=== PATIENT | male | born 1970 | race Caucasian/White ===

== ENCOUNTER 2018-05-08 10:38 | Emergency (ER) | payer MEDICAID ==
[2018-05-08 11:10] LABS: BASO % 0.5 % (0.0-1.0); EOS # 0.3 10^3/uL (0.0-0.50); EOS % 3.2 % (0.0-3.0); HEMATOCRIT 42.9 % (42.0-52.0); HEMOGLOBIN 14.8 g/dl (13.5-17.5); IMMATURE GRANULOCYTE % 0.1 % (0-3.0); LYMPH # 2.8 10^3/uL (1.5-4.5); LYMPH % 33.3 % (24.0-44.0); MEAN CORPUSCULAR HEMOGLOBIN 30.1 pg (27.0-33.0); MEAN CORPUSCULAR HGB CONC 34.5 g/dl (32.0-36.5); MEAN CORPUSCULAR VOLUME 87.4 fl (80.0-96.0); MONO # 0.7 10^3/uL (0.0-0.8); MONO % 7.8 % (0.0-5.0); NEUTROPHILS # 4.6 10^3/uL (1.8-7.7); NEUTROPHILS % 55.1 % (36.0-66.0); PLATELET COUNT, AUTOMATED 318 10^3/uL (150-450); RED BLOOD COUNT 4.91 10^6/uL (4.30-6.10); RED CELL DISTRIBUTION WIDTH 12.6 % (11.5-14.5); WHITE BLOOD COUNT 8.4 10^3/uL (4.0-10.0)
[2018-05-08 11:34] LABS: ANION GAP 6 MEQ/L (8-16); BLOOD UREA NITROGEN 19 MG/DL (7-18); CALCIUM LEVEL 8.8 MG/DL (8.5-10.1); CARBON DIOXIDE LEVEL 26 MEQ/L (21-32); CHLORIDE LEVEL 107 MEQ/L (98-107); CPK CREATINE PHOSPHOKINASE 179 U/L (39-308); CREATININE FOR GFR 0.94 MG/DL (0.70-1.30); GLOMERULAR FILTRATION RATE > 60.0 (>60); GLUCOSE, FASTING 103 MG/DL (70-100); MB/CK RELATIVE INDEX 1.28 (< OR =4); POTASSIUM SERUM 4.4 MEQ/L (3.5-5.1); SODIUM LEVEL 139 MEQ/L (136-145); TROPONIN I 0.03 NG/ML (< 0.10)
[2018-05-08] MEDS ORDERED: ISOVUE-370 76% 100ML VIAL (Q9967) As Ordered (12:58)
[2018-05-08] MEDS: ASPIRIN 81 MG CHEW TABLET PO (13:20)
[2018-05-08 14:13] LABS: CPK CREATINE PHOSPHOKINASE 157 U/L (39-308); MB/CK RELATIVE INDEX 1.46 (< OR =4); TROPONIN I 0.04 NG/ML (< 0.10)
[2018-05-08 17:00] LABS: CPK CREATINE PHOSPHOKINASE 147 U/L (39-308); MB/CK RELATIVE INDEX 1.36 (< OR =4); TROPONIN I 0.03 NG/ML (< 0.10)
[2018-05-08] MEDS: METOPROLOL TART 25 MG TABLET PO (17:05)
[2018-05-08] MEDS: CLOPIDOGREL 300 MG TAB (PLAVIX) PO (17:05)
[2018-05-08] MEDS: ATORVASTATIN 20 MG TAB PO (17:05)
== END 2018-05-08 17:43 | disposition home or self-care (01) ==
LOC: M ED 10:38
DX: I20.9 Angina pectoris, unspecified (principal); I10 Essential (primary) hypertension
CPT/HCPCS: Q9967

== ENCOUNTER → 2018-06-15 | Outpatient (CLI) | payer OTHER ==
[~2018-06-15] MED LIST: ASPI1TAB PO; ATOR40TA75 PO; METO1TAB32 PO; NITR0.4S14 SL; PLAV1TAB2 PO
--- NOTE | 2018-06-15 09:32 | REP ---
CHEST X-RAY: Two views. HISTORY: Shortness of breath. COMPARISON CHEST X-RAY: May 08, 2018. FINDINGS: There is a small to moderate left pleural effusion. No right pleural effusion is seen. The heart is borderline in size. There are degenerative changes in the thoracic spine. There is old post-traumatic deformity versus a benign osteochondroma in the proximal humerus on the left at the edge of the field of view and incompletely seen. No other significant bony abnormality. IMPRESSION: 1. Small to moderate left pleural effusion, new from May 08, 2018. 2. 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 Electronically Signed by Benjamin Gould MD 06/15/2018 06:33 P
== END ==
LOC: M RAD 08:59
PROVIDERS: ATTEND Internal Medicine Cardiovascular Disease
DX: J90 Pleural effusion, not elsewhere classified (principal); R06.02 Shortness of breath; M51.34 Other intervertebral disc degeneration, thoracic region

== ENCOUNTER → 2018-07-15 | Outpatient (REF) | payer OTHER ==
[2018-07-15 20:28] LABS: HEMOGLOBIN A1c 5.6 %
== END ==
LOC: M SFHCADAM 14:00
PROVIDERS: ATTEND Family Medicine
DX: I25.810 Atherosclerosis of coronary artery bypass graft(s) without angina pectoris (principal)

== ENCOUNTER 2019-01-20 12:32 | Emergency (ER) | payer OTHER ==
[~2019-01-20] VITALS: Ht 177.8 cm; Wt 103.6 kg
[~2019-01-20 12:32] MED LIST changes: -ASPI1TAB PO; +ASPI81TA26 PO
[2019-01-20] MEDS: NITROGLYCERIN 0.4 MG SUBL TABLET SL PRN ×3 (12:45→13:00)
[2019-01-20] MEDS ORDERED: DEXTROSE 50% 50 ML SYRINGE IV STA (12:55)
[2019-01-20 13:00] VITALS: BP 135/83
[2019-01-20] MEDS ORDERED: NITROGLYCERIN 2% OINT 1 GM *U/D* PKT TOP ONE (13:00)
[2019-01-20 13:13] LABS: BASO # 0.1 10^3/uL (0.0-0.2); BASO % 0.6 % (0.0-1.0); EOS # 0.3 10^3/uL (0.0-0.50); EOS % 3.8 % (0.0-3.0); HEMATOCRIT 45.8 % (42.0-52.0); HEMOGLOBIN 15.8 g/dl (13.5-17.5); LYMPH # 2.5 10^3/uL (1.5-4.5); LYMPH % 31.5 % (24.0-44.0); MEAN CORPUSCULAR HEMOGLOBIN 30.9 pg (27.0-33.0); MEAN CORPUSCULAR HGB CONC 34.5 g/dl (32.0-36.5); MEAN CORPUSCULAR VOLUME 89.6 fl (80.0-96.0); MONO # 0.6 10^3/uL (0.0-0.8); MONO % 7.2 % (0.0-5.0); NEUTROPHILS # 4.6 10^3/uL (1.8-7.7); NEUTROPHILS % 56.5 % (36.0-66.0); PLATELET COUNT, AUTOMATED 316 10^3/uL (150-450); RED BLOOD COUNT 5.11 10^6/uL (4.30-6.10); WHITE BLOOD COUNT 8.1 10^3/uL (4.0-10.0)
[2019-01-20 13:40] LABS: BLOOD UREA NITROGEN 13 MG/DL (7-18); CALCIUM LEVEL 9.4 MG/DL (8.5-10.1); CARBON DIOXIDE LEVEL 28 MEQ/L (21-32); CHLORIDE LEVEL 108 MEQ/L (98-107); CK-MB VALUE MASS < 1.0 NG/ML (<3.6); CPK CREATINE PHOSPHOKINASE 114 U/L (39-308); CREATININE FOR GFR 0.92 MG/DL (0.70-1.30); GLOMERULAR FILTRATION RATE > 60.0 (>60); GLUCOSE, FASTING 101 MG/DL (70-100); MB/CK RELATIVE INDEX 0.88 (< OR =4); POTASSIUM SERUM 4.2 MEQ/L (3.5-5.1); SODIUM LEVEL 140 MEQ/L (136-145); TROPONIN I < 0.02 NG/ML (< 0.10)
[2019-01-20 13:43] LABS: INR 1.02; PROTHROMBIN TIME 13.1 SECONDS (11.8-14.0)
--- NOTE | 2019-01-20 13:51 | REP ---
PORTABLE CHEST, ONE VIEW: HISTORY: Chest pain. COMPARISON: 06/15/2018. The lungs are clear. The heart is normal in size. The pulmonary vasculature is normal in appearance. IMPRESSION: No acute disease. Electronically Signed by Sammy Membreno MD 01/20/2019 02:02 P
[2019-01-20 14:06] LABS: LIPASE 148 U/L (73-393)
[2019-01-20 17:44] LABS: CK-MB VALUE MASS 3.4 NG/ML (<3.6); MB/CK RELATIVE INDEX 3.06 (< OR =4); TROPONIN I 0.29 NG/ML (< 0.10)
[2019-01-20] MEDS ORDERED: HEPARIN DRIP 25,000 UNITS in APPROPRIATE DILUENT 1 EA IV SCH (18:51)
[2019-01-20] MEDS ORDERED: HEPARIN SOD (PORCINE) 5000 UNITS/ML VIAL IV ONE (19:00)
[2019-01-20 19:41] VITALS: BP 148/82
--- NOTE | 2019-01-21 08:03 | ECGEPIP ---
[facility] - ED Test Date: 2019-01-20 Pat Name: WADE DOMINGO Department: Room: - Gender: Male Medical Staff Physician: TIN : 1970 Requested By: Hung Shukla Order Number: [id number] Reading MD: Tamia Hurt Measurements Intervals [place] Rate: 62 P: 36 VT: 173 QRS: -15 QRSD: 134 T: 33 QT: 400 QTc: 407 Interpretive Statements SINUS RHYTHM INTRAVENTRICULAR CONDUCTION DELAY MODERATE VOLTAGE CRITERIA FOR LVH, CONSIDER NORMAL VARIANT Electronically Signed on 01-21-2019 8:03:29 EDT by Tamia Hurt
--- NOTE | 2019-01-21 08:09 | ECGEPIP ---
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
== END 2019-01-20 19:45 | disposition short-term general hospital (02) ==
LOC: M ED 12:32
DX: I20.0 Unstable angina (principal); I10 Essential (primary) hypertension; E78.5 Hyperlipidemia, unspecified; Z79.899 Other long term (current) drug therapy; Z79.82 Long term (current) use of aspirin; Z79.02 Long term (current) use of antithrombotics/antiplatelets

== ENCOUNTER → 2019-10-18 | Outpatient (REF) | payer OTHER ==
[2019-10-18 18:38] LABS: ALBUMIN 4.2 GM/DL (3.2-5.2); ALT/SGPT 28 U/L (12-78); BLOOD UREA NITROGEN 11 MG/DL (7-18); CALCIUM LEVEL 9.7 MG/DL (8.5-10.1); CARBON DIOXIDE LEVEL 27 MEQ/L (21-32); CHLORIDE LEVEL 105 MEQ/L (98-107); CHOLESTEROL LEVEL 184 MG/DL (<200); CHOLESTEROL RISK RATIO 3.833 (<5); CREATININE FOR GFR 0.87 MG/DL (0.70-1.30); GLOMERULAR FILTRATION RATE > 60.0 (>60); GLUCOSE, FASTING 89 MG/DL (70-100); HDL CHOLESTEROL 48 MG/DL (>40); LDL CHOLESTEROL 95 MG/DL (<100); NON-HDL-C 136 MG/DL; POTASSIUM SERUM 4.8 MEQ/L (3.5-5.1); SODIUM LEVEL 139 MEQ/L (136-145); TOTAL PROTEIN 7.6 GM/DL (6.4-8.2); TRIGLYCERIDES LEVEL 206 MG/DL (<150)
== END ==
LOC: M LABDRWAD 16:41
PROVIDERS: ATTEND Physician Assistant
DX: E78.2 Mixed hyperlipidemia (principal)

== ENCOUNTER → 2021-02-14 | Outpatient (CLI) | payer OTHER ==
[~2021-02-14] MED LIST changes: +ATOR80TA59 PO; +CIPR-249 PO; +EZET10TA21 PO; +FLOM0.4C39 PO; +HYDR-3713 PO; +LISI-898 PO; +OXYB5TAB10 PO; +PYRI1TAB5 PO
--- NOTE | 2021-02-14 10:05 | REP ---
INDICATION: CORONARY ARTERY DISEASE. COMPARISON: Comparison radiograph is from January 20, 2019. TECHNIQUE: Two views.. FINDINGS: The lungs are well inflated and free of infiltrate. The pleural angles are sharp. The heart size is normal. Pulmonary vasculature is not increased. No significant bony abnormality is seen. There are degenerative changes in the thoracic spine. Lateral radiograph demonstrates what appears to be a ureteral stent in 1 of the kidneys. IMPRESSION: No active cardiopulmonary disease. <Electronically signed by Rickey Gould > 02/14/21 1001
== END ==
LOC: M ADAMS 09:42
PROVIDERS: ATTEND Family Medicine
DX: I25.810 Atherosclerosis of coronary artery bypass graft(s) without angina pectoris (principal)

== ENCOUNTER → 2021-02-14 | Outpatient (REF) | payer OTHER ==
[2021-02-14 15:33] LABS: BASO # 0.1 10^3/uL (0.0-0.2); BASO % 0.8 % (0.0-1.0); EOS # 0.4 10^3/uL (0.0-0.5); EOS % 4.6 % (0.0-3.0); HEMOGLOBIN 15.3 g/dl (13.5-17.5); LYMPH # 2.6 10^3/uL (1.5-5.0); LYMPH % 27.3 % (24.0-44.0); MEAN CORPUSCULAR HEMOGLOBIN 29.5 pg (27.0-33.0); MEAN CORPUSCULAR HGB CONC 32.6 g/dl (32.0-36.5); MEAN CORPUSCULAR VOLUME 90.7 fl (80.0-96.0); MONO # 0.9 10^3/uL (0.0-0.8); NEUTROPHILS # 5.5 10^3/uL (1.5-8.5); NEUTROPHILS % 57.7 % (36.0-66.0); PLATELET COUNT, AUTOMATED 403 10^3/uL (150-450); RED BLOOD COUNT 5.18 10^6/uL (4.30-6.10); WHITE BLOOD COUNT 9.6 10^3/uL (4.0-10.0)
[2021-02-14 15:35] LABS: APPEARANCE, URINE MANUAL CLOUDY (CLEAR); COLOR, URINE MANUAL ORANGE (YELLOW)
[2021-02-14 15:37] LABS: BILIRUBIN, URINE MANUAL OBSCURED (NEGATIVE); BLOOD URINE MANUAL POSITIVE (NEGATIVE); GLUCOSE, URINE (UA) MANUAL NEGATIVE (NEGATIVE); KETONE, URINE MANUAL OBSCURED mg/dL (NEGATIVE); LEUKOCYTE ESTERASE, URINE MAN OBSCURED (NEGATIVE); NITRITE, URINE MANUAL OBSCURED (NEGATIVE); PROTEIN, URINE MANUAL OBSCURED mg/dL (NEGATIVE); UROBILINOGEN, URINE MANUAL OBSCURED mg/dl (NORMAL)
[2021-02-14 15:49] LABS: CALCIUM OXALATE CRYSTALS,URINE SMALL AMOUNT /hpf; RBC, URINE TNTC /hpf (0-3); SQUAMOUS EPITHELIAL CELL URINE SMALL AMOUNT /hpf (SMALL AMT)
[2021-02-14 15:50] LABS: BACTERIA, URINE NONE SEEN; HYALINE CAST, URINE NONE SEEN /lpf (0-1)
[2021-02-14 16:00] LABS: ALBUMIN 3.7 GM/DL (3.2-5.2); ALT/SGPT 40 U/L (12-78); BILIRUBIN,TOTAL 1.1 MG/DL (0.2-1.0); BLOOD UREA NITROGEN 18 MG/DL (7-18); CALCIUM LEVEL 9.2 MG/DL (8.5-10.1); CARBON DIOXIDE LEVEL 27 MEQ/L (21-32); CHLORIDE LEVEL 106 MEQ/L (98-107); CREATININE FOR GFR 0.89 MG/DL (0.70-1.30); GLOMERULAR FILTRATION RATE > 60.0 (>60); GLUCOSE, FASTING 83 MG/DL (70-100); POTASSIUM SERUM 4.7 MEQ/L (3.5-5.1); SODIUM LEVEL 138 MEQ/L (136-145); TOTAL PROTEIN 6.9 GM/DL (6.4-8.2)
== END ==
LOC: M SFHCADAM 09:41
PROVIDERS: ATTEND Family Medicine
DX: I25.810 Atherosclerosis of coronary artery bypass graft(s) without angina pectoris (principal); Z96.0 Presence of urogenital implants

== ENCOUNTER → 2021-02-19 | Outpatient (CLI) | payer OTHER | LOC: M LABSMTC 10:01 | PROVIDERS: ATTEND Anesthesiology | DX: Z01.812 Encounter for preprocedural laboratory examination (principal) ==

== ENCOUNTER → 2021-02-24 | Outpatient (CLI) | payer OTHER | LOC: M LABSMTC 11:15 | PROVIDERS: ATTEND Anesthesiology | DX: Z01.812 Encounter for preprocedural laboratory examination (principal) ==

== ENCOUNTER 2021-02-28 08:51 | Day surgery (SDC) | payer OTHER ==
[~2021-02-28] VITALS: Ht 177.8 cm; Wt 99.5 kg
[~2021-02-28 08:51] MED LIST changes: +CIPROFLOXACIN 400 MG in IV 1 EA IV ONE; +LIDOCAINE 1% MDV 20ML VIAL SQ PRN; +LR 1,000 ML IV ONE
[2021-02-28] MEDS ORDERED: COLA100C5 PO (09:08)
[2021-02-28] MEDS ORDERED: CONRAY-60 60% 50ML VIAL (Q9961) As Ordered ONE (09:40)
[2021-02-28] MEDS ORDERED: MIDAZOLAM INJ 2MG/2ML VIAL (J2250 PER 1MG) As Ordered ONE (10:07)
[2021-02-28] MEDS ORDERED: LIDOCAINE 2% 100MG/5ML SDV (FOR ANES.) As Ordered ONE (10:07)
[2021-02-28] MEDS ORDERED: ROCURONIUM BROMIDE 50 MG/5 ML VIAL As Ordered ONE (10:07)
[2021-02-28] MEDS ORDERED: ONDANSETRON 4MG/2ML VIAL As Ordered ONE (10:07)
[2021-02-28] MEDS ORDERED: fentaNYL 100 MCG/2 ML INJECTION (J3010) As Ordered ONE (10:07)
[2021-02-28] MEDS ORDERED: dexameTHASONE 4 MG/ML 1ML VIAL (J1100 PER 1MG) As Ordered ONE (10:07)
[2021-02-28] MEDS ORDERED: propofoL 200 MG/20 ML VIAL As Ordered ONE (10:07)
[2021-02-28] MEDS ORDERED: SUCCINYLCHOLINE 100 MG/5 ML SYRINGE (J0330) As Ordered ONE (10:08)
[2021-02-28] MEDS ORDERED: ACETAMINOPHEN 1000MG 100ML IV BTL (OFIRMEV) (J0131 PER 10MG) As Ordered ONE (10:26)
[2021-02-28] MEDS ORDERED: SUGAMMADEX SODIUM 500 MG/5 ML VIAL (BRIDION) As Ordered ONE (10:29)
--- NOTE | 2021-02-28 10:45 | REP ---
INDICATION: LEFT STENT PLACEMENT. COMPARISON: 02/07/2021. TECHNIQUE: Single view abdomen and pelvis using a C-arm. FINDINGS: Left ureteral stent is visualized with the proximal end coiled in the region of the left kidney in the distal end in the region of the urinary bladder. IMPRESSION: 4 seconds of fluoroscopy time was utilized. <Electronically signed by Mian Helm > 02/28/21 [id number]
[2021-02-28] MEDS ORDERED: PERCOCET 5MG/325MG TAB As Ordered ONE (11:27)
[2021-02-28] MEDS ORDERED: LR 1,000 ML IV SCH (11:35)
[2021-02-28] MEDS ORDERED: fentaNYL 100 MCG/2 ML INJECTION (J3010) IV PRN (11:35)
[2021-02-28] MEDS ORDERED: METOCLOPRAMIDE INJ 10MG/2ML VIAL (J2765 PER 1) IV PRN (11:35)
[2021-02-28] MEDS ORDERED: ONDANSETRON 4MG/2ML VIAL IV PRN (11:35)
[2021-02-28] MEDS ORDERED: PERCOCET 5MG/325MG TAB PO PRN (11:35)
[2021-02-28] MEDS ORDERED: BACT800T5 PO (11:40)
[2021-02-28] MEDS ORDERED: HYDR-3713 PO (11:40)
[2021-02-28] MEDS ORDERED: OXYB5TAB10 PO (11:40)
[2021-02-28 12:30] VITALS: BP 146/81
--- NOTE | 2021-02-28 12:59 | ROOPDOC ---
[facility] Report Of Operation Report of Operation DATE OF PROCEDURE: 02/28/21 PREPROCEDURE DIAGNOSES: [Left ureteral stone, papillary bladder tumor]. POSTPROCEDURE DIAGNOSES: [Same]. PROCEDURE PERFORMED: [Cystoscopy, biopsy and fulguration of bladder tumor, stent removal, rigid ureteroscopy, basket stone extraction, stent placement]. SURGEON: [Fortino]MD TEACHER EMOTIONALLY IMPAIRED: [None], ANESTHESIA: [General]. ESTIMATED BLOOD LOSS: Approximately [minimal] mL. COMPLICATIONS: [None]. REMARKS: [50-year-old white male. Presented with left flank pain. Found to have a distal left ureteral stone. A stent was placed. During stent placement a small papillary tumor near the left ureteral orifice was found. Today's surgery was arranged. Informed consent was obtained. Risks were discussed such as infection, bleeding, pain, scarring, injury to the urinary tract, failure of surgery, need for more surgery, risks of anesthesia and others.]. FINDINGS: SPECIMENS REMOVED: [Bladder tumor and left ureteral stone] PROCEDURE NOTE: . DESCRIPTION OF PROCEDURE: [I met with the patient in the preop area and surgery was again discussed. No guarantees were given. I explained to him that he might wake up with a stent in place. Informed consent was obtained. Patient wished to proceed. Patient was brought to the OR room. General anesthesia was secured. Dorsolithotomy position. Well padded. Prepping and draping in the usual sterile fashion. Timeout performed. Surgery done under coverage of an IV antibiotic. Rigid cystoscopy performed. Bladder thoroughly inspected. Small papillary tumor just lateral to and millimeters from the left ureteral orifice was noted. No other tumor. The tumor was biopsied with a cold cup biopsy force ps. 2 biopsies were taken. They were handed off. The area was fulgurated with a Bugbee. Hemostasis was secured. After this the stent was pulled to the external urethral meatus after which a wire was passed through it into the kidney as seen using fluoroscopy. The stent was removed. With the wire in place rigid ureteroscopy was performed. A stone in the distal ureter was enc ountered. It was extracted with a basket. Laser was not needed. The ureteroscope was passed once again. I passed it to just below the renal pelvis. No other stone. After this a new stent was placed. 6 Irish multilength. Tether left attached. Patient tolerated everything well left the room in satisfactory condition. Tether was taped to his thigh. Fluoroscopy was used intermittently. Some images were saved. I interpreted as the case went on.]. SHASHANK ASHLEY MD Feb 28, 2021 12:59
[2021-03-06 12:08] LABS: Ca Ox Monohydrate 100 % (.); Size 2x2 mm (.)
== END 2021-02-28 12:30 | disposition home or self-care (01) ==
LOC: M SDC 08:51
PROVIDERS: ATTEND Urology
DX: N20.1 Calculus of ureter (principal); D49.4 Neoplasm of unspecified behavior of bladder; I10 Essential (primary) hypertension; I25.10 Atherosclerotic heart disease of native coronary artery without angina pectoris; I25.2 Old myocardial infarction; Z98.61 Coronary angioplasty status; E78.5 Hyperlipidemia, unspecified; Z79.82 Long term (current) use of aspirin; K59.00 Constipation, unspecified; Z79.899 Other long term (current) drug therapy; F17.220 Nicotine dependence, chewing tobacco, uncomplicated
CPT/HCPCS: 52224; 52332; 52352; 74420; 82365; 88300; 88305; C1769; C2617; J0131; J0330; J1100; J2250; J2405; J3010; Q9961

== ENCOUNTER → 2021-04-11 | Outpatient (REF) | payer OTHER ==
[~2021-04-11] MED LIST changes: +BACT800T5 PO; -CIPROFLOXACIN 400 MG in IV 1 EA IV ONE; +COLA100C5 PO; -LIDOCAINE 1% MDV 20ML VIAL SQ PRN; -LR 1,000 ML IV ONE
== END ==
LOC: M LABDRWAD 17:08
PROVIDERS: ATTEND Urology
DX: Z80.42 Family history of malignant neoplasm of prostate (principal)

== ENCOUNTER → 2023-02-25 | Outpatient (REF) | payer OTHER ==
[~2023-02-25] MED LIST changes: +CLOP75TA99 PO; -LISI-898 PO; +LISI5TAB11 PO; -PLAV1TAB2 PO
[2023-02-25 18:59] LABS: CHOLESTEROL RISK RATIO 2.38 (<5); HDL CHOLESTEROL 57.4 MG/DL (>40); LDL CHOLESTEROL 33.4 MG/DL (<100); NON-HDL-C 79.6 MG/DL
== END ==
LOC: M LABDRWAD 16:48
PROVIDERS: ATTEND Physician Assistant
DX: Z95.5 Presence of coronary angioplasty implant and graft (principal)

== ENCOUNTER → 2023-11-23 | Outpatient (REF) | payer OTHER ==
[~2023-11-23] MED LIST changes: -OXYB5TAB10 PO; +OXYB5TAB14 PO
[2023-11-23 14:44] LABS: BASO # 0.1 10^3/uL (0.0-0.2); BASO % 0.6 % (0.0-1.0); EOS % 9.1 % (0.0-3.0); HEMATOCRIT 50.8 % (42.0-52.0); HEMOGLOBIN 16.9 g/dl (13.5-17.5); LYMPH # 3.7 10^3/uL (1.5-5.0); MEAN CORPUSCULAR HEMOGLOBIN 30.5 pg (27.0-33.0); MEAN CORPUSCULAR HGB CONC 33.3 g/dl (32.0-36.5); MEAN CORPUSCULAR VOLUME 91.5 fl (80.0-96.0); MONO # 0.7 10^3/uL (0.0-0.8); NEUTROPHILS # 5.1 10^3/uL (1.5-8.5); NEUTROPHILS % 47.9 % (36.0-66.0); PLATELET COUNT, AUTOMATED 310 10^3/uL (150-450); RED BLOOD COUNT 5.55 10^6/uL (4.30-6.10); WHITE BLOOD COUNT 10.6 10^3/uL (4.0-10.0)
[2023-11-23 14:53] LABS: ALBUMIN 4.1 G/DL (3.2-5.2); ALKALINE PHOSPHATASE 82 U/L (46-116); ALT/SGPT 52 U/L (7.0-40); AST/SGOT 24 U/L (<34); BLOOD UREA NITROGEN 20 MG/DL (9-23); CARBON DIOXIDE LEVEL 29 MMOL/L (20-31); CHLORIDE LEVEL 107 MMOL/L (98-107); CHOLESTEROL LEVEL 128 MG/DL (<200); CHOLESTEROL RISK RATIO 2.62 (<5); CREATININE FOR GFR 1.07 MG/DL (0.70-1.30); GLOMERULAR FILTRATION RATE > 60.0 (>56); GLUCOSE, FASTING 95 MG/DL (60-100); HDL CHOLESTEROL 48.7 MG/DL (>40); LDL CHOLESTEROL 33.7 MG/DL (<100); NON-HDL-C 79.3 MG/DL; POTASSIUM SERUM 5.2 MMOL/L (3.5-5.1); SODIUM LEVEL 139 MMOL/L (136-145); TOTAL PROTEIN 7.1 G/DL (5.7-8.2); TRIGLYCERIDES LEVEL 228 MG/DL (<150)
[2023-11-24 07:21] LABS: LDL DIRECT 57 mg/dL (<100)
== END ==
LOC: M LABDRWAD 13:56
PROVIDERS: ATTEND Nurse Practitioner Family
DX: E78.5 Hyperlipidemia, unspecified (principal); I10 Essential (primary) hypertension; Z95.5 Presence of coronary angioplasty implant and graft

== ENCOUNTER → 2024-02-29 | Outpatient (REF) | payer OTHER ==
[2024-03-01 13:00] LABS: APPEARANCE, URINE CLOUDY (CLEAR); BACTERIA, URINE AUTO NEGATIVE (NEGATIVE); BILIRUBIN, URINE AUTO NEGATIVE (NEGATIVE); BLOOD, URINE BLOOD NEGATIVE (NEGATIVE); COLOR, URINE AMBER (YELLOW); GLUCOSE, URINE (UA) AUTO NEGATIVE (NEGATIVE); KETONE, URINE AUTO NEGATIVE (NEGATIVE); LEUKOCYTE ESTERASE, URINE AUTO NEGATIVE (NEGATIVE); MUCUS, URINE SMALL (NEGATIVE); NITRITE, URINE AUTO NEGATIVE (NEGATIVE); PROTEIN, URINE AUTO NEGATIVE (NEGATIVE); RBC, URINE AUTO 0 /HPF (0-3); SPECIFIC GRAVITY URINE AUTO 1.017 (1.002-1.035); SQUAMOUS EPITHELIAL CELL UR AU 0 /HPF (0-6); UROBILINOGEN, URINE AUTO 0.2 mg/dL (0.0-2.0); WBC, URINE AUTO 0 /HPF (0-3)
== END ==
LOC: M SFHCADAM 12:25
PROVIDERS: ATTEND Family Medicine
DX: R10.9 Unspecified abdominal pain (principal)

== ENCOUNTER → 2024-03-01 | Outpatient (CLI) | payer OTHER | LOC: M ADAMS 15:15 | PROVIDERS: ATTEND Family Medicine | DX: M47.814 Spondylosis without myelopathy or radiculopathy, thoracic region (principal); M47.896 Other spondylosis, lumbar region ==

== ENCOUNTER → 2024-03-01 | Outpatient (REF) | payer OTHER ==
[2024-03-01 19:16] LABS: ALBUMIN 4.1 G/DL (3.2-5.2); ALKALINE PHOSPHATASE 101 U/L (46-116); ALT/SGPT 41 U/L (7.0-40); AST/SGOT 19 U/L (<34); BLOOD UREA NITROGEN 26 MG/DL (9-23); CALCIUM LEVEL 10.4 MG/DL (8.5-10.1); CARBON DIOXIDE LEVEL 28 MMOL/L (20-31); CHLORIDE LEVEL 106 MMOL/L (98-107); CREATININE FOR GFR 1.02 MG/DL (0.70-1.30); GLOMERULAR FILTRATION RATE > 60.0 (>56); GLUCOSE, FASTING 65 MG/DL (60-100); POTASSIUM SERUM 4.4 MMOL/L (3.5-5.1); SODIUM LEVEL 141 MMOL/L (136-145); TOTAL PROTEIN 7.3 G/DL (5.7-8.2)
== END ==
LOC: M SFHCADAM 15:14
PROVIDERS: ATTEND Family Medicine
DX: R10.9 Unspecified abdominal pain (principal)

== ENCOUNTER → 2024-05-18 | Outpatient (CLI) | payer OTHER | LOC: M ADAMS 08:41 | PROVIDERS: ATTEND Family Medicine | DX: M79.601 Pain in right arm (principal); M75.31 Calcific tendinitis of right shoulder ==